=== PATIENT | female | born 1955 | race Caucasian/White ===

== ENCOUNTER 2022-08-06 10:08 | Emergency (ER) | payer BC ==
[2022-08-06 10:20] VITALS: BP 131/68
--- NOTE | 2022-08-06 12:03 | ED Physician Documentation ---
History of Present Illness - Stated complaint Stated Complaint: SORE R EYE - Chief complaint Chief Complaint: Heent - History obtained from History obtained from: Patient - History of Present Illness Timing: How many days ago (3) Pain level max: 2 Pain level now: 1 - Additonal information Additional information: 66-year-old female presents to the emergency department with redness to the right eye for the past 3 days. Does not recall any injury. States it is mildly painful. No changes in her vision. No drainage. No URI symptoms. Wears glasses but not contacts. She was seen at a walk-in clinic yesterday, she states that they told her to put warm compresses on the area, but she is concerned for potential infection. Nothing makes it better or worse. Review of Systems Constitutional: denies: Fever, Chills GI: denies: Vomiting, Diarrhea Skin: denies: Rash PD PAST MEDICAL HISTORY - Past Medical History Past Medical History: No - Present Medications Home Medications: Ambulatory Orders Medication Instructions Recorded Confirmed Polymyxin B/Trimeth Ophth Drop 1 drops RIGHTEYE Q3H 7 Days #1 each 08/06/22 [Polytrim Ophth Drops] - Allergies Allergies/Adverse Reactions: Allergies Allergy/AdvReac Type Severity Reaction Status Date / Time No Known Drug Allergies Allergy Verified 08/06/22 10:19 - Living Situation Living Arrangement: reports: At home PD ED PE NORMAL - Vitals Vital signs reviewed: Yes - General General: Alert and oriented X 3, No acute distress - HEENT HEENT: PERRL, EOMI, Other (Mild conjunctival injection on the right eye. No drainage. Normal visual acuity. Otherwise normal exam. Lids normal.) - Derm Derm: Warm and dry - Neuro Neuro: Alert and oriented X 3 Results - Vitals Vitals: Vital Signs - 24 hr 08/06/22 10:16 Temperature 36.8 C Heart Rate 47 L Respiratory 16 Rate Blood Pressure 131/68 H O2 Saturation 99 Oxygen O2 Source Room air PD Medical Decision Making - ED course Complexity details: considered differential, d/w patient ED course: Patient with a right eye conjunctivitis. We will place on antibiotics for this. Patient is well-appearing, nontoxic. Afebrile. No evidence of orbital cellulitis. Patient counseled regarding signs and symptoms for which I believe and urgent re-evaluation would be necessary. Patient with good understanding of and agreement to plan and is comfortable going home at this time This document was made in part using voice recognition software. While efforts are made to proofread this document, sound alike and grammatical errors may occur. Departure - Departure Disposition: 01 Home, Self Care Clinical Impression: Conjunctivitis Qualifiers: Conjunctivitis type: unspecified Laterality: right Qualified Code(s): H10.9 - Unspecified conjunctivitis Condition: Good Instructions: ED Conjunctivitis Nonspecific Follow-Up: your,doctor as needed [Other] Fazal Ivring MD [Provider Admit Priv/Credential] - Prescriptions: Polymyxin B/Trimeth Ophth Drop [Polytrim Ophth Drops] 1 drops RIGHTEYE Q3H 7 Days #1 each Comments: Please follow up with ophthalmology if you fail to improve in the next 2-3 days. Please return if you worsen. Your prescriptions were sent to [facility] in [place].
== END 2022-08-06 12:17 | disposition home or self-care (01) ==
LOC: ED 10:08
DX: H10.9 Unspecified conjunctivitis (principal)
CPT/HCPCS: 99282; 99283